=== PATIENT | male | born 1990 | race African-American/Black ===

== ENCOUNTER 2016-09-12 21:30 | Emergency (ER) | payer SELFPAY ==
[~2016-09-12] VITALS: Ht 182.8 cm; Wt 74.8 kg
[~2016-09-12 21:30] MED LIST: AMOXICILLIN500 MG PO; AUGMENTIN 875 M1 TAB PO; CIPRO500 MG PO; CLEOCIN150 MG PO; DICLOFENAC POTA50 MG PO; DOXYCYCLINE MO100 MG PO; LOMOTIL 0.025 M1 TA1 PO; NKHM PO; TRAMADOL HCL50 MG PO; XANAX0.5 MG PO; XANAX1 MG PO; ZOFRAN ODT4 MG SL
[2016-09-12] MEDS ORDERED: AMOXICILLIN500 M2 PO (23:30)
[2016-09-12] MEDS ORDERED: Motrin,Rufen800 MG PO (23:31)
== END 2016-09-13 00:21 | disposition home or self-care (01) ==
LOC: ED 21:30
DX: K08.89 Other specified disorders of teeth and supporting structures (principal); R51 Headache; Z88.6 Allergy status to analgesic agent

== ENCOUNTER 2020-03-09 18:40 | Emergency (ER) | payer SELFPAY ==
[~2020-03-09] VITALS: Ht 182.8 cm; Wt 68.0 kg
[~2020-03-09 18:40] MED LIST changes: +AMOXICILLIN500 M2 PO; +Motrin,Rufen800 MG PO
[2020-03-09 19:40] LABS: ALBUMIN 4.9 gm/dl (3.1-4.5); ALKALINE PHOSPHATASE 57 U/L (45-117); BUN 19 mg/dl (7-24); CHLORIDE 102 mmol/L (98-107); CREATININE 0.99 mg/dL (0.70-1.30); LIPASE 83 U/L (73-393); SGOT/AST 20 IU/L (3-35); SGPT/ALT 52 U/L (12-78); SODIUM 136 mmol/L (136-145); TOTAL PROTEIN 9.4 gm/dL (6.4-8.2)
[2020-03-09 19:56] LABS: HEMATOCRIT 48.3 % (42.0-52.0); MEAN CELL VOLUME 84.6 fl (80.0-94.0); MEAN CORPUSCULAR HGB 28.7 pg (27.0-31.0); MEAN PLATELET VOLUME 10.2 fl (9.6-12.3); PLATELET COUNT AUTOMATED 332 10*3/uL (130-400); RED BLOOD COUNT 5.71 10*6/uL (4.50-5.90); WHITE BLOOD COUNT 18.9 10*3/uL (4.8-10.8)
[2020-03-09 20:08] LABS: URINE AMPHETAMINES < 1000 (1000ng/ml); URINE BARBITURATES < 200 (200ng/ml); URINE BENZODIAZEPINES > 200 (200ng/ml); URINE CANNABINOIDS (THC) > 50 (50ng/ml); URINE COCAINE < 300 (300ng/ml); URINE METHADONE < 300 (300ng/ml); URINE OPIATES < 300 (300ng/ml)
[2020-03-09 20:18] LABS: URINE PHENCYCLIDINE < 25 (25ng/ml)
[2020-03-09 20:20] LABS: PLATELET SUFFICIENCY NORMAL (NORMAL); TOTAL CELLS COUNTED 100 #CELLS
[2020-03-09] MEDS ORDERED: CIPRO500 MG PO (21:45)
[2020-03-09] MEDS ORDERED: FLAGYL500 MG PO (21:45)
== END 2020-03-09 21:58 | disposition home or self-care (01) ==
LOC: ED 18:40
PROVIDERS: Internal Medicine
DX: K52.9 Noninfective gastroenteritis and colitis, unspecified (principal); F13.10 Sedative, hypnotic or anxiolytic abuse, uncomplicated; E87.6 Hypokalemia; Z88.8 Allergy status to other drugs, medicaments and biological substances; Z79.899 Other long term (current) drug therapy; Z20.828 Contact with and (suspected) exposure to other viral communicable diseases

== ENCOUNTER 2020-12-31 16:37 | Emergency (ER) | payer SELFPAY ==
[~2020-12-31] VITALS: Ht 185.4 cm; Wt 79.4 kg
[~2020-12-31 16:37] MED LIST changes: +FLAGYL500 MG PO
== END 2020-12-31 17:11 | disposition left against medical advice (07) ==
LOC: ED 16:37
DX: M25.572 Pain in left ankle and joints of left foot (principal); Z53.21 Procedure and treatment not carried out due to patient leaving prior to being seen by health care provider

== ENCOUNTER 2022-07-22 22:20 | Emergency (ER) | payer OTHER ==
[~2022-07-22] VITALS: Ht 182.8 cm; Wt 72.6 kg
[2022-07-23] MEDS ORDERED: ONDANSETRON4 MG SL (00:01)
== END 2022-07-23 00:22 | disposition home or self-care (01) ==
LOC: ED 22:20
DX: B34.9 Viral infection, unspecified (principal); K21.9 Gastro-esophageal reflux disease without esophagitis; Z91.030 Bee allergy status; Z88.6 Allergy status to analgesic agent; Z88.5 Allergy status to narcotic agent; Z98.890 Other specified postprocedural states; Z20.822 Contact with and (suspected) exposure to COVID-19